=== PATIENT | male | born 1975 | race Caucasian/White ===

== ENCOUNTER 2018-12-12 06:48 | Day surgery (SDC) | payer BC ==
[~2018-12-12 06:48] MED LIST: Lactated Ringers 1,000 ML IV SCH
[2018-12-12] MEDS ORDERED: fentaNYL 100 MCG/2 ML SDV IV ONE (06:49)
[2018-12-12] MEDS ORDERED: Ketorolac 30 MG/ML SDV IVPUSH ONE (06:49)
[2018-12-12] MEDS ORDERED: Propofol 200 MG/20 ML SDV IV ONE (06:49)
[2018-12-12] MEDS ORDERED: Dexamethasone 4 MG/ML 5 ML MDV IVPUSH ONE (06:49)
[2018-12-12] MEDS ORDERED: Ondansetron 4 MG/2 ML SDV IVPUSH ONE (06:49)
[2018-12-12] MEDS ORDERED: Lidocaine 2% 100 MG/5 ML Syringe IVPUSH ONE (06:49)
[2018-12-12] MEDS ORDERED: Midazolam 1 MG/ML 2 ML SDV IV ONE (06:49)
[2018-12-12] MEDS ORDERED: ceFAZolin 2 GM in Premix Bag 1 BAG IV ONE (08:00)
[2018-12-12] MEDS ORDERED: Bupivacaine 0.5% 30 ML SDV ONE (08:14)
[2018-12-12] MEDS ORDERED: Lidocaine 1% with EPINEPHrine 1:100,000 20 ML MDV ONE (08:14)
[2018-12-12] MEDS ORDERED: Acetaminophen/HYDROcodone 325-5 MG Tab PO PRN (08:51)
--- NOTE | 2018-12-12 08:55 | PCM.OPNOTE ---
- General Post-Op/Procedure Note Date of Surgery/Procedure: 12/12/18 Operative Procedure(s): rih repair with mesh Findings: direct inguinal hernia Pre Op Diagnosis: inguinal hernia without obstru/ gangrene. Post-Op Diagnosis: Same Anesthesia Technique: General LMA, Local (8 ml 1 % ldio with epi/0.5% buvipicaine) Primary Surgeon: Arron Shi Anesthesia Provider: Magnus Whitfield Pathology: none EBL in mLs: 2 Complications: None Condition: Good Free Text/Narrative:: see dictation
--- NOTE | 2018-12-12 10:41 | OR ---
DATE OF OPERATION: 12/12/2018 SURGEON: Arron Shi MD PROCEDURE PERFORMED: Mesh repair of right inguinal hernia. PREOPERATIVE DIAGNOSIS: Nonrecurrent unilateral inguinal hernia without obstruction or gangrene. POSTOPERATIVE DIAGNOSIS: Nonrecurrent unilateral inguinal hernia without obstruction or gangrene. INDICATIONS FOR PROCEDURE: This is a 43-year-old white male who has had a longstanding history of an inguinal hernia. It has recently become symptomatic. He was offered and accepted repair. INTRAOPERATIVE FINDINGS: Direct inguinal hernia was identified. This was repaired with a Bard mesh preshaped with keyhole size 10 x 4.5 cm, lot number [id number], reference number [id number], expiration date 12/17/2022, and a total of 8 mL of 1:1 mixture of 1% lidocaine with epinephrine and 0.5% bupivacaine were used for our local. DESCRIPTION OF OPERATION: After an excellent LMA anesthetic was administered, the patient was prepped and draped in the usual sterile manner. Approximately 6 mL of our mixture was used to infiltrate the planned incision site, which is in the inguinal area with a length of approximately 5 cm with an intercept point midway between the anterior-superior iliac spine and the symphysis pubis along the inguinal ligament. More local was also infiltrated just medial to the anterior-superior iliac spine raising a small skin wheal and doing a deep intermuscular injection as well to get the genitofemoral and ilioinguinal nerves on that side. Our incision was then made. Electrocautery dissection was carried out exposing the aponeurosis of the external oblique. More local was then injected underneath the aponeurosis. A luis was then made in the aponeurosis and the incision carried out through the external ring. Cord was mobilized and controlled with a [place] drain. Cord was then skeletonized. No evidence of hernia was noted. There was a defect noted on the floor of the inguinal canal. The floor was reapproximated by taking interrupted 0 Ethibond and approximated in transversalis fascia to the inguinal ligament. Our mesh was then placed on the floor of the canal and sutured into position with a running 2- 0 Vicryl along the inguinal ligament. The keyhole was closed with a running 2-0 Vicryl as well. At this point, it became readily apparent that the ilioinguinal nerve would be involved with the mesh and this we discussed previously, and the patient accepted. We clamped, divided, and transected the nerve to prevent formation of neuroma and postop neuropathic pain. The inguinal canal was then irrigated with saline. Aponeurosis was approximated with a running 3-0 Vicryl. 3-0 Vicryl was used to approximate Alejandra's fascia and a running subcu 4-0 Vicryl was used to close the skin. Needle, sponge, and instrument counts were reported as correct. The patient was taken to recovery room in good condition. /[id number] /MODL
== END 2018-12-12 10:35 | disposition home or self-care (01) ==
LOC: FB.SDS 06:48
PROVIDERS: ATTEND Surgery
DX: K40.90 Unilateral inguinal hernia, without obstruction or gangrene, not specified as recurrent (principal); F17.210 Nicotine dependence, cigarettes, uncomplicated
CPT/HCPCS: 49505; C1781; J0690; J1100; J1885; J2001; J2250; J2405; J2704; J3010; J3490; J7120